=== PATIENT | female | born 1985 | race Caucasian/White ===

== ENCOUNTER 2018-07-22 16:53 | Outpatient (CLI) | payer OTHER | END 2018-07-22 18:17 | disposition home or self-care (01) | LOC: NST 16:53 | DX: O76 Abnormality in fetal heart rate and rhythm complicating labor and delivery (principal); Z34.83 Encounter for supervision of other normal pregnancy, third trimester ==

== ENCOUNTER 2018-08-19 15:00 | Inpatient (IN) | payer OTHER ==
[~2018-08-19] VITALS: Ht 177.8 cm; Wt 80.3 kg
[2018-08-28] MEDS ORDERED: PRENATAL TABLE1 EAC1 PO (22:48)
[2018-08-28] MEDS ORDERED: METFORMIN HCL500 M2 PO (22:48)
== END 2018-08-30 13:04 | disposition home or self-care (01) | DRG 807 ==
LOC: LDR 15:00 → OB/GYN 08-29 14:50 → LDR 09-10 15:00
PROC: 10E0XZZ Delivery of Products of Conception, External Approach (ICD-10-PCS; principal; 2018-08-28)
PROC: 0UQGXZZ Repair Vagina, External Approach (ICD-10-PCS; 2018-08-28)
PROC: 4A1HXCZ Monitoring of Products of Conception, Cardiac Rate, External Approach (ICD-10-PCS; 2018-08-28)
DX: O71.4 Obstetric high vaginal laceration alone (principal); Z37.0 Single live birth; O24.420 Gestational diabetes mellitus in childbirth, diet controlled; Z3A.36 36 weeks gestation of pregnancy; Z22.330 Carrier of Group B streptococcus

== ENCOUNTER 2020-04-11 08:20 | Outpatient (CLI) | payer OTHER ==
[~2020-04-11 08:20] MED LIST: METFORMIN HCL500 M2 PO; PRENATAL TABLE1 EAC1 PO
[2020-04-13] MEDS ORDERED: VITAMIN C PO (10:03)
[2020-04-13] MEDS ORDERED: TAPAZOLE5 M1 PO (10:04)
[2020-04-13] MEDS ORDERED: oral contraceptive (12:38)
== END 2020-04-11 09:03 | disposition home or self-care (01) ==
LOC: LAB 08:20
PROVIDERS: ATTEND Surgery
DX: K59.4 Anal spasm (principal); K60.1 Chronic anal fissure; Z20.828 Contact with and (suspected) exposure to other viral communicable diseases; K64.2 Third degree hemorrhoids; K64.3 Fourth degree hemorrhoids; Z03.818 Encounter for observation for suspected exposure to other biological agents ruled out

== ENCOUNTER 2020-04-15 06:08 | Day surgery (SDC) | payer OTHER ==
[~2020-04-15 06:08] MED LIST changes: +TAPAZOLE5 M1 PO; +VITAMIN C PO; +oral contraceptive
[2020-04-15] MEDS ORDERED: PERCOCET 5-3251 EACH PO (08:48)
[2020-04-15] MEDS ORDERED: RECTICARE30 GM TOP (08:49)
== END 2020-04-15 13:50 | disposition home or self-care (01) ==
LOC: CIR.AMB 06:08
PROVIDERS: ATTEND Surgery
DX: K60.1 Chronic anal fissure (principal)